=== PATIENT | male | born 1990 | race Caucasian/White ===

== ENCOUNTER 2021-01-22 13:00 | Emergency (ER) | payer BC ==
[~2021-01-22] VITALS: Ht 172.7 cm; Wt 74.8 kg
[2021-01-22] MEDS ORDERED: NEOMY/BACITRA/POLYMYXIN B OINT UD PACKET TP ONE ×2 (13:15→13:35)
--- NOTE | 2021-01-22 13:48 | NUR ---
Patient discharged to home in stable condition with brisk steady gait. Written and verbal after care instructions given to patient. Patient verbalized understanding and compliance of instructions. Stressed follow up with primary doctor and hand doctor or return to ER for worsening s/s.
== END 2021-01-22 13:48 | disposition home or self-care (01) ==
LOC: ER 13:00
DX: S61.012A Laceration without foreign body of left thumb without damage to nail, initial encounter (principal); W27.8XXA Contact with other nonpowered hand tool, initial encounter; Y92.89 Other specified places as the place of occurrence of the external cause
CPT/HCPCS: 73140; A4217; A4663